=== PATIENT | female | born 1940 | race Caucasian/White ===

== ENCOUNTER → 2024-02-02 14:21 | Outpatient (CLI) | payer MEDICARE, SELFPAY | LOC: RESP 14:24 | PROVIDERS: PCP Family Medicine; Referring Provider Family Medicine; Visit Provider Family Medicine | DX: J98.4 Other disorders of lung (principal); Z87.891 Personal history of nicotine dependence; J98.8 Other specified respiratory disorders | CPT/HCPCS: 94060; 94726; 94729 ==